=== PATIENT | male | born 1945 | race Caucasian/White ===

== ENCOUNTER → 2017-11-25 | Outpatient (CLI) | payer MEDICARE, BC ==
[~2017-11-25] MED LIST: AMLODIPINE BESY10 MG; AMLODIPINE10 MG PO; ASPIR 8181 MG; ATENOLOL50 MG PO; DOXAZOSIN4 MG PO; FUROSEMIDE20 MG; FUROSEMIDE40 MG PO; GLIPIZIDE ER10 M1 PO; GLIPIZIDE ER5 MG PO; GLIPIZIDE XL5 M1 PO; GLIPIZIDE XL5 MG; GLIPIZIDE XL5 MG PO; KLOR-CON 88 ME1 PO; KLOR-CON 88 MEQ; LOSARTAN POTAS100 MG PO; LOSARTAN POTASS1 TA2; METFORMIN; METFORMIN500 MG PO; PLAVIX75 MG; SLOW-MAG71.5 MG PO; VICTOZA6 MG/ML
--- NOTE | ~2017-11-25 | ST ---
[place], [place] EXERCISE STRESS TEST REPORT NAME[facility]: [id number] UNIT #: [id number] ROOM: DOCTOR: AARON LIGHT MD BIRTHDATE: [birth year] DOS: 11/25/2017 TREADMILL NUCLEAR STRESS TEST USING DAVID PROTOCOL TIME: 10:40 a.m. AGE: 74. HEIGHT: 69 inches. WEIGHT: 216 pounds. REFERRING PHYSICIAN: Aaron Light MD FINDINGS: Predicted maximal heart rate 100% is 149, 85% is 127. Baseline heart rate of 60, blood pressure of 158/82 and EKG is sinus rhythm with MS interval of 0.20 and rare unifocal PVCs noted. Stage I: Heart rate is 112, blood pressure of 146/60 and EKG did not show any abnormal or acute changes. The patient continued to have occasional unifocal PVCs and remained asymptomatic. Stage II: Heart rate of 127 and blood pressure of 162/56. The patient complained of leg fatigue and some shortness of breath and occasional unifocal PVCs noted and mild ST depression with upgoing ST slope in inferolateral wall. The patient was observed for 4 minutes in recovery phase and at 4 minutes his heart rate was 97 with blood pressure of 140/54. The ST-T wave changes showed slight improvement as far as J point changes noted as above. The patient did not experience any chest pain and at 6 minute level his cardiogram was normal, except he continued to have occasional to frequent unifocal PVCs. INTERPRETATION: This patient achieved 85% of his predicted maximal heart rate. Exercise time of 4 minutes using David protocol. Occasional to frequent unifocal PVCs noted. The patient remained asymptomatic and no abnormal ST-T wave changes of myocardial ischemia noted. Nonspecific J point changes seen. From EKG point of view, this is a negative study and final impression pending nuclear images. AARON LIGHT MD CM:STRESS:EXERCISE STRESS TEST REPORT [id number] AARON LIGHT MD
== END | disposition home or self-care (01) ==
LOC: CARD 02:18
DX: I25.10 Atherosclerotic heart disease of native coronary artery without angina pectoris (principal); E78.5 Hyperlipidemia, unspecified; E11.9 Type 2 diabetes mellitus without complications; R94.31 Abnormal electrocardiogram [ECG] [EKG]

== ENCOUNTER → 2018-07-22 | Outpatient (CLI) | payer MEDICARE, BC | END | disposition home or self-care (01) | LOC: RAD 16:10 | DX: R14.0 Abdominal distension (gaseous) (principal) ==

== ENCOUNTER → 2018-08-02 | Outpatient (CLI) | payer MEDICARE, BC | END | disposition home or self-care (01) | LOC: US 07:02 | DX: R14.0 Abdominal distension (gaseous) (principal) ==

== ENCOUNTER → 2019-03-21 | Outpatient (CLI) | payer MEDICARE, BC | END | disposition home or self-care (01) | LOC: RAD 12:20 | DX: J43.9 Emphysema, unspecified (principal) ==

== ENCOUNTER → 2021-02-08 | Outpatient (CLI) | payer MEDICARE, BC | END | disposition home or self-care (01) | LOC: CARD 03:26 | PROVIDERS: ATTEND Internal Medicine Cardiovascular Disease | DX: R07.2 Precordial pain (principal); E11.9 Type 2 diabetes mellitus without complications; I10 Essential (primary) hypertension; E66.9 Obesity, unspecified; E78.5 Hyperlipidemia, unspecified; R07.9 Chest pain, unspecified ==

== ENCOUNTER → 2021-02-19 | Outpatient (CLI) | payer MEDICARE, BC | END | disposition home or self-care (01) | LOC: RAD 13:42 | PROVIDERS: ATTEND Internal Medicine | DX: Z01.810 Encounter for preprocedural cardiovascular examination (principal); R07.9 Chest pain, unspecified; M47.814 Spondylosis without myelopathy or radiculopathy, thoracic region; M25.712 Osteophyte, left shoulder; M25.711 Osteophyte, right shoulder ==

== ENCOUNTER → 2022-10-07 | Outpatient (CLI) | payer MEDICARE, BC | END | disposition home or self-care (01) | LOC: LAB 13:22 | PROVIDERS: ATTEND Internal Medicine | DX: M17.12 Unilateral primary osteoarthritis, left knee (principal); M25.562 Pain in left knee ==

== ENCOUNTER → 2023-05-20 | Outpatient (CLI) | payer MEDICARE, BC ==
[~2023-05-20] MED LIST changes: +LANTUS SOL100 UNIT/1 SC; +PRAZOSIN HCL2 MG PO; +ROSUVASTATIN CA40 MG PO; +TOPCARE OMEPRAZ20 MG PO; +VITAMIN D3125 MC1 PO
== END | disposition home or self-care (01) ==
LOC: CARD 01:09
PROVIDERS: ATTEND Internal Medicine Cardiovascular Disease
DX: I25.9 Chronic ischemic heart disease, unspecified (principal); I25.10 Atherosclerotic heart disease of native coronary artery without angina pectoris; R07.9 Chest pain, unspecified; E78.5 Hyperlipidemia, unspecified; R94.31 Abnormal electrocardiogram [ECG] [EKG]

== ENCOUNTER → 2023-05-30 | Outpatient (CLI) | payer BC, MEDICARE ==
[2023-05-30 11:16] LABS: BASO % 0.7 % (0.0-1.0); EOS % 0.7 % (1.0-4.0); HEMATOCRIT 41.6 % (42.0-52.0); LYMPH # 1.4 10*3/uL (1.3-4.4); LYMPH % 22.7 % (27.0-41.0); MEAN CELL VOLUME 93.9 fl (80.0-94.0); MEAN PLATELET VOLUME 11.3 fl (9.6-12.3); MONO # 0.6 10*3/uL (0.1-1.0); MONO % 10.2 % (3.0-9.0); NEUT # 3.9 10*3/uL (2.3-7.9); NEUT % 65.4 % (47.0-73.0); PLATELET COUNT AUTOMATED 146 10*3/uL (130-400); RED BLOOD COUNT 4.43 10*6/uL (4.50-5.90); RED CELL DISTRI WIDTH 13.4 % (0-14.5)
[2023-05-30 12:03] LABS: BUN 11 mg/dl (9-23); CHLORIDE 108 mmol/L (98-107); POTASSIUM 3.4 mmol/L (3.4-5.1)
== END | disposition home or self-care (01) ==
LOC: LAB 10:50
PROVIDERS: ATTEND Student in an Organized Health Care Education/Training Program
DX: Z01.818 Encounter for other preprocedural examination (principal); I10 Essential (primary) hypertension; E11.65 Type 2 diabetes mellitus with hyperglycemia; E03.9 Hypothyroidism, unspecified; J44.9 Chronic obstructive pulmonary disease, unspecified; M47.814 Spondylosis without myelopathy or radiculopathy, thoracic region

== ENCOUNTER 2023-06-12 17:17 | Emergency (ER) | payer BC, MEDICARE ==
[~2023-06-12] VITALS: Ht 175.2 cm; Wt 88.5 kg
[2023-06-12 18:15] LABS: BASO # 0.1 10*3/uL (0.0-0.1); BASO % 0.7 % (0.0-1.0); EOS # 0.1 10*3/uL (0.0-0.4); EOS % 1.8 % (1.0-4.0); HEMATOCRIT 36.4 % (42.0-52.0); LYMPH # 1.3 10*3/uL (1.3-4.4); LYMPH % 18.4 % (27.0-41.0); MEAN CELL VOLUME 89.7 fl (80.0-94.0); MEAN CORPUSCULAR HGB CONC 33.5 g/dl (33.0-37.0); MEAN PLATELET VOLUME 11.8 fl (9.6-12.3); MONO # 0.9 10*3/uL (0.1-1.0); MONO % 11.8 % (3.0-9.0); NEUT # 4.8 10*3/uL (2.3-7.9); NEUT % 66.6 % (47.0-73.0); PLATELET COUNT AUTOMATED 125 10*3/uL (130-400); RED BLOOD COUNT 4.06 10*6/uL (4.50-5.90); RED CELL DISTRI WIDTH 13.6 % (0-14.5); WHITE BLOOD COUNT 7.2 10*3/uL (4.8-10.8)
[2023-06-12 18:24] LABS: ACT PARTIAL THROMBO TIME 28.2 SECONDS (20.0-32.1)
[2023-06-12 18:36] LABS: POTASSIUM 3.5 mmol/L (3.4-5.1); TOTAL PROTEIN 6.9 gm/dL (6.0-8.0)
[2023-06-12] MEDS ORDERED: PEPCID20 MG PO (18:44)
[2023-06-12] MEDS ORDERED: PROTONIX40 MG PO (18:44)
== END 2023-06-12 19:11 | disposition home or self-care (01) ==
LOC: ED 17:17
PROVIDERS: Emergency Medicine
DX: K25.9 Gastric ulcer, unspecified as acute or chronic, without hemorrhage or perforation (principal); R04.0 Epistaxis; I25.10 Atherosclerotic heart disease of native coronary artery without angina pectoris; E78.5 Hyperlipidemia, unspecified; I10 Essential (primary) hypertension; E11.9 Type 2 diabetes mellitus without complications; E78.00 Pure hypercholesterolemia, unspecified; Z88.8 Allergy status to other drugs, medicaments and biological substances; Z88.0 Allergy status to penicillin; Z91.013 Allergy to seafood; Z91.041 Radiographic dye allergy status; Z95.5 Presence of coronary angioplasty implant and graft; Z98.890 Other specified postprocedural states

== ENCOUNTER → 2024-03-10 | Day surgery (SDC) | payer MEDICARE, BC ==
[~2024-03-10] VITALS: Ht 175.2 cm; Wt 86.2 kg
[~2024-03-10] MED LIST changes: +ACETAMINOPHEN 100 ML IV ONE; +BUPIVACAINE 0.5% 30 ML IV ONE; +COLACE100 MG PO; +Dexamethasone Sodium Phospha 20 MG/5 ML VIAL IV ONE; +Ketamine Hydrochloride 500 MG/5 ML VIAL IV ONE; +Ketorolac Tromethamine 30 MG/ML VIAL IV ONE; +Lactated Ringer's Solution 1,000 ML IV ONE; +Lidocaine Hydrochloride 2% 10 ML AMP IV ONE; +MAGNESIUM SULFATE 2 GM/50 ML IVB IV ONE; +MORPHINE Sulfate 2 MG/ML SYR IV PRN; +Midazolam Hydrochloride 2 MG/2 ML VIAL IV ONE; +Ondansetron Hydrochloride 4 MG/2 ML VIAL IV ONE; +Ondansetron8 MG PO; +PEPCID20 MG PO; +PERCOCET 5-3251 EACH PO; +PROPOFOL 200 MG/20 ML VIAL IV ONE; +PROTONIX40 MG PO; +ROCURONIUM BROMIDE 50 MG/5 ML SYRINGE IV ONE; +SEVOFLURANE 250 ML BOT INH ONE; +SUGAMMADEX SODIUM 200 MG/2 ML VIAL IV ONE; +ceFAZolin sodium/sodium chlor 20 ML IV ONE
[2024-03-10 07:15] VITALS: BP 152/79
[2024-03-10 08:40] VITALS: BP 131/67
[2024-03-10 08:55] VITALS: BP 126/68
[2024-03-10 09:10] VITALS: BP 131/72
[2024-03-10 09:25] VITALS: BP 135/71
[2024-03-10 09:40] VITALS: BP 120/70
== END | disposition home or self-care (01) ==
LOC: SDC 03-07 08:00
PROVIDERS: ATTEND Surgery
DX: K40.90 Unilateral inguinal hernia, without obstruction or gangrene, not specified as recurrent (principal); I10 Essential (primary) hypertension; E11.9 Type 2 diabetes mellitus without complications; I25.10 Atherosclerotic heart disease of native coronary artery without angina pectoris; F17.210 Nicotine dependence, cigarettes, uncomplicated; Z95.818 Presence of other cardiac implants and grafts; Z95.0 Presence of cardiac pacemaker; Z86.73 Personal history of transient ischemic attack (TIA), and cerebral infarction without residual deficits; Z98.890 Other specified postprocedural states; Z79.4 Long term (current) use of insulin; Z79.84 Long term (current) use of oral hypoglycemic drugs; Z79.899 Other long term (current) drug therapy; Z88.0 Allergy status to penicillin; Z88.8 Allergy status to other drugs, medicaments and biological substances; Z82.49 Family history of ischemic heart disease and other diseases of the circulatory system

== ENCOUNTER → 2024-04-06 | Outpatient (CLI) | payer MEDICARE, BC ==
[~2024-04-06] MED LIST changes: -ACETAMINOPHEN 100 ML IV ONE; -BUPIVACAINE 0.5% 30 ML IV ONE; -Dexamethasone Sodium Phospha 20 MG/5 ML VIAL IV ONE; -Ketamine Hydrochloride 500 MG/5 ML VIAL IV ONE; -Ketorolac Tromethamine 30 MG/ML VIAL IV ONE; -Lactated Ringer's Solution 1,000 ML IV ONE; -Lidocaine Hydrochloride 2% 10 ML AMP IV ONE; -MAGNESIUM SULFATE 2 GM/50 ML IVB IV ONE; -MORPHINE Sulfate 2 MG/ML SYR IV PRN; -Midazolam Hydrochloride 2 MG/2 ML VIAL IV ONE; -Ondansetron Hydrochloride 4 MG/2 ML VIAL IV ONE; -PROPOFOL 200 MG/20 ML VIAL IV ONE; -ROCURONIUM BROMIDE 50 MG/5 ML SYRINGE IV ONE; -SEVOFLURANE 250 ML BOT INH ONE; -SUGAMMADEX SODIUM 200 MG/2 ML VIAL IV ONE; -ceFAZolin sodium/sodium chlor 20 ML IV ONE
== END | disposition home or self-care (01) ==
LOC: RAD 15:36
PROVIDERS: ATTEND Internal Medicine
DX: R05.8 Other specified cough (principal)

== ENCOUNTER → 2024-05-23 | Day surgery (SDC) | payer MEDICARE, BC ==
[~2024-05-23] VITALS: Wt 86.2 kg
[~2024-05-23] MED LIST changes: +B121000 MCG/1 IM; +BRILINTA90 M1 PO; +CARAFATE1 G1 PO; +ELIQUIS5 M1 PO; +INSULIN GL300 UNIT/1 SQ; +Lactated Ringer's Solution 500 ML IV ONE; +Lactated Ringer's Solution 500 ML IV SCH; +Lidocaine Hydrochloride 5 ML VIAL IV ONE; +METFORMIN HYDR500 MG PO; -METFORMIN500 MG PO; +OMEPRAZOLE40 MG PO; +ROCURONIUM BROMIDE 50 MG/5 ML SYRINGE IV ONE; +TOPROL XL50 M1 PO; +VENT7GM INH; +VITAMIN D3125 MCG PO
[2024-05-23 10:12] VITALS: BP 132/69
[2024-05-23 10:28] VITALS: BP 117/60
[2024-05-23 10:43] VITALS: BP 123/65
[2024-05-23 10:58] VITALS: BP 120/64
== END | disposition home or self-care (01) ==
LOC: SDC 05-19 09:30
PROVIDERS: ATTEND Surgery
DX: K21.9 Gastro-esophageal reflux disease without esophagitis (principal); D64.9 Anemia, unspecified; K44.9 Diaphragmatic hernia without obstruction or gangrene; K31.7 Polyp of stomach and duodenum; K31.89 Other diseases of stomach and duodenum; I10 Essential (primary) hypertension; E11.9 Type 2 diabetes mellitus without complications; E78.00 Pure hypercholesterolemia, unspecified; I25.10 Atherosclerotic heart disease of native coronary artery without angina pectoris; J45.909 Unspecified asthma, uncomplicated; N17.0 Acute kidney failure with tubular necrosis; N40.0 Benign prostatic hyperplasia without lower urinary tract symptoms; I48.0 Paroxysmal atrial fibrillation; F10.90 Alcohol use, unspecified, uncomplicated; Z95.818 Presence of other cardiac implants and grafts; Z95.0 Presence of cardiac pacemaker; Z86.73 Personal history of transient ischemic attack (TIA), and cerebral infarction without residual deficits; Z98.890 Other specified postprocedural states; Z79.4 Long term (current) use of insulin; Z79.84 Long term (current) use of oral hypoglycemic drugs; Z79.899 Other long term (current) drug therapy; Z91.013 Allergy to seafood; Z88.0 Allergy status to penicillin; Z88.8 Allergy status to other drugs, medicaments and biological substances; Z82.49 Family history of ischemic heart disease and other diseases of the circulatory system

== ENCOUNTER → 2024-06-14 | Outpatient (CLI) | payer MEDICARE, BC ==
[~2024-06-14] MED LIST changes: +Albuterol Sulfate 2.5 MG/3 ML VIAL NEB ONE; -Lactated Ringer's Solution 500 ML IV ONE; -Lactated Ringer's Solution 500 ML IV SCH; -Lidocaine Hydrochloride 5 ML VIAL IV ONE; -ROCURONIUM BROMIDE 50 MG/5 ML SYRINGE IV ONE
== END | disposition home or self-care (01) ==
LOC: CP 00:46
PROVIDERS: ATTEND Internal Medicine
DX: R06.2 Wheezing (principal); R05.8 Other specified cough

== ENCOUNTER 2025-01-12 23:18 | Emergency (ER) | payer MEDICARE, BC ==
[~2025-01-12] VITALS: Ht 175.2 cm; Wt 83.9 kg
[~2025-01-12 23:18] MED LIST changes: -AMLODIPINE10 MG PO; -Albuterol Sulfate 2.5 MG/3 ML VIAL NEB ONE; +FERROCITE324 MG PO; +NORVASC5 MG PO; +PLAVIX75 M1 PO; +POTASSIUM CHLO20 ME3 PO
== END 2025-01-13 02:43 | disposition home or self-care (01) ==
LOC: ED 23:18
DX: S80.862A Insect bite (nonvenomous), left lower leg, initial encounter (principal); S80.861A Insect bite (nonvenomous), right lower leg, initial encounter; Z91.013 Allergy to seafood; Z91.041 Radiographic dye allergy status; Z88.0 Allergy status to penicillin; Z91.018 Allergy to other foods; Z79.899 Other long term (current) drug therapy; Z79.84 Long term (current) use of oral hypoglycemic drugs; Z79.4 Long term (current) use of insulin; Z98.890 Other specified postprocedural states; Z95.5 Presence of coronary angioplasty implant and graft; W57.XXXA Bitten or stung by nonvenomous insect and other nonvenomous arthropods, initial encounter; Y93.89 Activity, other specified; Y92.89 Other specified places as the place of occurrence of the external cause; Y99.8 Other external cause status

== ENCOUNTER 2025-05-15 03:23 | Emergency (ER) | payer MEDICARE, BC ==
[~2025-05-15] VITALS: Ht 172.7 cm; Wt 90.7 kg
[~2025-05-15 03:23] MED LIST changes: +AMLODIPINE BESYL5 MG PO; +APRESOLINE25 MG PO; +FUROSEMIDE20 M1 PO; +HYDROCODONE-AC1 EAC1 PO; +IMDUR SA30 MG PO; +LISINOPRIL10 M1 PO; +TAMSULOSIN HCL0.4 MG PO
[2025-05-15] MEDS ORDERED: METHOCARBAMOL 500 MG TAB PO ONE (03:55)
[2025-05-15] MEDS ORDERED: PREDNISONE20 M1 PO (03:58)
[2025-05-15] MEDS ORDERED: METHOCARBAMOL500 M1 PO (03:58)
== END 2025-05-15 04:05 | disposition home or self-care (01) ==
LOC: ED 03:23
DX: S16.1XXA Strain of muscle, fascia and tendon at neck level, initial encounter (principal); I10 Essential (primary) hypertension; E11.9 Type 2 diabetes mellitus without complications; Z98.890 Other specified postprocedural states; Z88.8 Allergy status to other drugs, medicaments and biological substances; Z88.0 Allergy status to penicillin; Z91.013 Allergy to seafood; X58.XXXA Exposure to other specified factors, initial encounter; Y93.89 Activity, other specified; Y92.89 Other specified places as the place of occurrence of the external cause; Y99.8 Other external cause status